=== PATIENT | female | born 1985 | race Caucasian/White ===

== ENCOUNTER 2020-10-01 09:23 | Emergency (ER) | payer MEDICAID ==
[~2020-10-01] VITALS: Ht 170.2 cm; Wt 73.0 kg
[2020-10-01] MEDS ORDERED: DEXAMETHASONE 10 MG/ML VIAL IM ONE (09:45)
[2020-10-01 10:40] VITALS: BP 111/64
== END 2020-10-01 10:53 | disposition home or self-care (01) ==
LOC: ER 09:23
DX: J02.9 Acute pharyngitis, unspecified (principal); R07.89 Other chest pain; Z86.16 Personal history of COVID-19
CPT/HCPCS: 71045; 87070; 87430; 93005; 96372; 99285; J1100

== ENCOUNTER 2020-10-14 17:29 | Emergency (ER) | payer MEDICAID ==
[~2020-10-14] VITALS: Ht 152.4 cm; Wt 78.0 kg
[2020-10-14] MEDS ORDERED: HYDROCODONE/ACETAMINOPHEN 5/325MG TABLET PO STA (18:21)
[2020-10-14] MEDS ORDERED: IBUPROFEN 800MG TABLET PO ONE (18:30)
[2020-10-14] MEDS ORDERED: LIDOCAINE HCL 1% 20ML VIAL (Pyxis) INJ INFIL ONE (18:30)
[2020-10-14] MEDS ORDERED: CLIN300C12 MT (19:07)
[2020-10-14 19:08] LABS: CLARITY URINE CLEAR (CLEAR); COLOR URINE YELLOW (YELLOW); KETONES URINE TRACE (NEGATIVE); LEUKOCYTE ESTERASE URINE NEGATIVE (NEGATIVE); NITRITE URINE NEGATIVE (NEGATIVE); OCCULT BLOOD URINE 3+ (NEGATIVE); PH URINE 6.5 (4.5-8.0); PROTEIN URINE NEGATIVE (NEGATIVE); UROBILINOGEN URINE 0.2 E.U./dL (0.2-1.0)
[2020-10-14] MEDS ORDERED: LIDOCAINE/PRILOCAINE CREAM 5 GM TUBE TOP ONE (19:15)
[2020-10-14 20:19] VITALS: BP 149/72
== END 2020-10-14 20:22 | disposition home or self-care (01) ==
LOC: ER 17:29
DX: N76.4 Abscess of vulva (principal); Z87.42 Personal history of other diseases of the female genital tract
CPT/HCPCS: 10060; 81003; 99283

== ENCOUNTER 2021-08-06 20:26 | Emergency (ER) | payer MEDICAID ==
[~2021-08-06] VITALS: Ht 154.9 cm; Wt 71.0 kg
[~2021-08-06 20:26] MED LIST: CLIN300C12 MT
[2021-08-06] MEDS ORDERED: ACETAMINOPHEN 325MG TABLET PO STA (22:00)
[2021-08-06 22:53] LABS: BASOPHILS % 0.3 % (0.0-2.0); EOSINOPHILS % 0.7 % (0.0-5.0); HEMATOCRIT. 41.4 % (36.0-48.0); LYMPHOCYTES % 22.8 % (20.0-50.0); MEAN CORPUSCULAR HEMOGLOBIN 31.9 pg (28.0-32.0); MEAN CORPUSCULAR VOLUME 94.3 fL (81.0-99.0); MEAN PLATELET VOLUME 8.5 fl (7.4-10.4); MONOCYTES % 5.9 % (2.0-8.0); NEUTROPHILS % 70.3 % (40.0-76.0); PLATELET 260 x1000/uL (130-400); RED BLOOD CELL COUNT 4.39 mill/uL (4.2-5.4); RED CELL DISTRIBUTION WIDTH 12.1 % (11.6-14.6)
[2021-08-06 23:02] LABS: CHLORIDE 107 mEq/L (98-107)
[2021-08-07 01:00] VITALS: BP 134/64
== END 2021-08-07 01:30 | disposition home or self-care (01) ==
LOC: ER 20:26
DX: R42 Dizziness and giddiness (principal); R11.0 Nausea; N92.0 Excessive and frequent menstruation with regular cycle; D72.829 Elevated white blood cell count, unspecified; E11.9 Type 2 diabetes mellitus without complications; Z97.5 Presence of (intrauterine) contraceptive device; Z88.1 Allergy status to other antibiotic agents
CPT/HCPCS: 36415; 80048; 81025; 82962; 85025; 93005; 99284